=== PATIENT | male | born 1985 | race Two or more races ===

== ENCOUNTER 2022-01-12 10:55 | Emergency (ER) | payer OTHER | END 2022-01-12 11:06 | disposition left against medical advice (07) | LOC: ER 10:55 | DX: T75.4XXA Electrocution, initial encounter (principal); W86.8XXA Exposure to other electric current, initial encounter; Y93.89 Activity, other specified; Y92.9 Unspecified place or not applicable; Y99.8 Other external cause status ==

== ENCOUNTER 2023-03-08 18:11 | Emergency (ER) | payer OTHER ==
[~2023-03-08] VITALS: Ht 180.3 cm; Wt 67.7 kg
[2023-03-08 18:34] VITALS: BP 131/90
[2023-03-08] MEDS ORDERED: IBUPROFEN 800 MG TAB PO ONE (20:15)
[2023-03-08] MEDS ORDERED: cefTRIAXone SOD 1,000 MG VL IM ONE (20:15)
[2023-03-08] MEDS ORDERED: NEOMYCIN-BACITRACIN-POLYM UNITDOSE PKG TOP OINT TOP ONE (20:15)
[2023-03-08] MEDS ORDERED: TETANUS-DIPTH-ACEL PERTUSSIS 0.5ML SYR Tdap IM ONE (20:15)
[2023-03-08] MEDS ORDERED: IBU600T PO (20:54)
[2023-03-08] MEDS ORDERED: CEPH500C PO (20:54)
[2023-03-08] MEDS ORDERED: MUPI2OIN2 EX (20:54)
[2023-03-08 21:36] VITALS: PULSE 70; RESP 19; O2SAT 96
== END 2023-03-08 21:37 | disposition home or self-care (01) ==
LOC: ER 18:11
DX: T23.202A Burn of second degree of left hand, unspecified site, initial encounter (principal); T23.201A Burn of second degree of right hand, unspecified site, initial encounter; T22.212A Burn of second degree of left forearm, initial encounter; T22.211A Burn of second degree of right forearm, initial encounter; X08.8XXA Exposure to other specified smoke, fire and flames, initial encounter; Y93.89 Activity, other specified; Y92.89 Other specified places as the place of occurrence of the external cause; Y99.8 Other external cause status
CPT/HCPCS: 16020; 71045; 90471; 90715; 96372; 99284; J0696